=== PATIENT | male | born 2000 | race African-American/Black ===

== ENCOUNTER 2021-07-14 18:26 | Emergency (ER) | payer OTHER ==
[~2021-07-14] VITALS: Ht 170.2 cm; Wt 82.8 kg
[2021-07-14 18:27] VITALS: BP 139/78
[2021-07-14] MEDS ORDERED: ACETAMINOPHEN 500 MG TAB PO ONE (18:45)
[2021-07-14 19:43] LABS: RSV AMPLIFICATION NEGATIVE (NEGATIVE)
== END 2021-07-14 20:06 | disposition home or self-care (01) ==
LOC: M ED 18:26
DX: J06.9 Acute upper respiratory infection, unspecified (principal); R50.9 Fever, unspecified

== ENCOUNTER 2023-09-14 08:44 | Emergency (ER) | payer OTHER ==
[~2023-09-14] VITALS: Ht 170.2 cm; Wt 85.2 kg
[2023-09-14 08:45] VITALS: BP 126/84; TEMP 98.4; O2SAT 97
[2023-09-14] MEDS ORDERED: ALBUTEROL SULFATE 2.5MG/0.5ML INH NEB SOLN NEB ONE (10:30)
[2023-09-14] MEDS: guaiFENesin ER TABLET 600 MG TAB PO STA (10:46)
[2023-09-14] MEDS: BENZONATATE 100MG CAPSULE PO ONE (10:46)
[2023-09-14] MEDS ORDERED: BENZ200C70 PO (11:57)
[2023-09-14] MEDS ORDERED: PSEU120T19 PO (11:57)
[2023-09-14] MEDS ORDERED: VENTAER INH (11:57)
== END 2023-09-14 12:08 | disposition home or self-care (01) ==
LOC: M ED 08:44
DX: J06.9 Acute upper respiratory infection, unspecified (principal); R05.9 Cough, unspecified; R06.02 Shortness of breath; Z88.2 Allergy status to sulfonamides; Z79.51 Long term (current) use of inhaled steroids; Z79.899 Other long term (current) drug therapy

== ENCOUNTER 2023-12-07 17:08 | Emergency (ER) | payer OTHER ==
[~2023-12-07] VITALS: Ht 170.2 cm; Wt 81.8 kg
[~2023-12-07 17:08] MED LIST: BENZ200C70 PO; PSEU120T19 PO; VENTAER INH
[2023-12-07 20:29] VITALS: BP 122/75; TEMP 97.6; O2SAT 98
== END 2023-12-07 20:30 | disposition home or self-care (01) ==
LOC: M ED 17:08
DX: S90.02XA Contusion of left ankle, initial encounter (principal); Y92.9 Unspecified place or not applicable; Y93.9 Activity, unspecified; Y99.0 Civilian activity done for income or pay; F10.10 Alcohol abuse, uncomplicated; Z88.2 Allergy status to sulfonamides; Z79.51 Long term (current) use of inhaled steroids; Z79.899 Other long term (current) drug therapy

== ENCOUNTER → 2024-08-03 | Outpatient (CLI) | payer OTHER | LOC: M CARPUL 10:58 | DX: R06.00 Dyspnea, unspecified (principal) ==

== ENCOUNTER → 2024-08-31 | Outpatient (CLI) | payer OTHER ==
[~2024-08-31] MED LIST changes: +METHACHOLINE KIT (6 VIAL.NEB PREMIX) INH ONE
== END ==
LOC: M CARPUL 09:07
DX: R06.00 Dyspnea, unspecified (principal)

== ENCOUNTER 2025-03-08 14:24 | Outpatient (CLI) | payer OTHER ==
[~2025-03-08] VITALS: Ht 172.7 cm; Wt 95.5 kg
[~2025-03-08 14:24] MED LIST changes: -METHACHOLINE KIT (6 VIAL.NEB PREMIX) INH ONE
[2025-03-08 14:35] VITALS: BP 125/87; O2SAT 98
[2025-03-08] MEDS: OMALIZUMAB 75 MG/0.5 ML SQ ONE (14:37)
[2025-03-08] MEDS: OMALIZUMAB 150MG/1ML SYRINGE SQ ONE (14:38)
[2025-03-08 15:15] VITALS: BP 135/82; O2SAT 98
== END 2025-03-08 15:15 | disposition home or self-care (01) ==
LOC: M INFU 14:24
PROVIDERS: ATTEND Internal Medicine Pulmonary Disease
DX: J45.50 Severe persistent asthma, uncomplicated (principal); Z88.2 Allergy status to sulfonamides
CPT/HCPCS: 96372; J2357

== ENCOUNTER 2025-03-22 13:43 | Outpatient (CLI) | payer OTHER ==
[~2025-03-22] VITALS: Ht 172.7 cm; Wt 95.5 kg
[2025-03-22 13:45] VITALS: BP 130/77; O2SAT 95
[2025-03-22] MEDS: OMALIZUMAB 75 MG/0.5 ML SC ONE (14:14)
[2025-03-22 14:30] VITALS: BP 129/78; O2SAT 98
== END 2025-03-22 14:30 | disposition home or self-care (01) ==
LOC: M INFU 13:43
PROVIDERS: ATTEND Internal Medicine Pulmonary Disease
DX: J45.50 Severe persistent asthma, uncomplicated (principal); Z88.2 Allergy status to sulfonamides
CPT/HCPCS: 96372; J2357

== ENCOUNTER → 2025-04-03 | Outpatient (REF) | LOC: M PLAIMG 09:03 | PROVIDERS: ATTEND Internal Medicine | DX: R52 Pain, unspecified (principal); Z01.89 Encounter for other specified special examinations ==